=== PATIENT | male | born 1970 | race Two or more races ===

== ENCOUNTER 2017-12-02 12:35 | Emergency (ER) | payer MEDICARE, MEDICAID ==
[~2017-12-02] VITALS: Ht 172.7 cm; Wt 81.6 kg
[2017-12-02 12:31] VITALS: BP 105/69
[2017-12-02] MEDS ORDERED: TAMSULOSIN HCL0.4 MG ORAL (12:50)
[2017-12-02] MEDS ORDERED: DEPAKOTE ER500 MG ORAL ×2 (12:50)
[2017-12-02] MEDS ORDERED: LIPITOR80 MG ORAL (12:50)
[2017-12-02] MEDS ORDERED: CELEXA20 MG ORAL (12:50)
[2017-12-02] MEDS ORDERED: SYNTHROID25 MCG ORAL (12:50)
[2017-12-02] MEDS ORDERED: MAG-OXIDE400 M1 PO (12:50)
[2017-12-02] MEDS ORDERED: thorazine PO (12:50)
[2017-12-02] MEDS ORDERED: TRADJENTA5 MG PO (12:50)
[2017-12-02] MEDS ORDERED: FERROUS SULFAT325 MG ORAL (12:50)
[2017-12-02] MEDS ORDERED: COGENTIN1 MG ORAL (12:50)
[2017-12-02] MEDS ORDERED: LEVEMIR FL100 UNIT/1 SUBQ (12:50)
[2017-12-02] MEDS ORDERED: CIPRO500 MG PO (12:50)
[2017-12-02] MEDS ORDERED: FAMOTIDINE20 MG ORAL (12:50)
[2017-12-02] MEDS ORDERED: BENADRYL ALLERG25 M1 PO (12:50)
[2017-12-02] MEDS ORDERED: GLUCAGON W/DILUE1 MG IJ (12:50)
[2017-12-02] MEDS ORDERED: SENNA8.6 M2 PO (12:50)
[2017-12-02] MEDS ORDERED: BENAZEPRIL HCL20 MG ORAL (12:50)
[2017-12-02] MEDS ORDERED: ACETAMINOPHEN325 M1 ORAL (12:50)
[2017-12-02] MEDS ORDERED: DOCUSATE SODIU100 MG ORAL (12:50)
[2017-12-02] MEDS ORDERED: METFORMIN HCL1000 M1 ORAL (12:50)
--- NOTE | 2017-12-02 13:37 | Emergency Room Report ---
History of Present Illness General Chief Complaint: General Complaint Source: Patient, Medical Record Present Illness HPI 46-year-old male sent from facility for displaced suprapubic catheter Looks like he had 16 Estonian placed previously EMS, notes from facility and patient do not know when suprapubic fell out denies abdominal pain, vomiting, diarrhea, fever chills Allergies: Coded Allergies: SULFA (SULFONAMIDE ANTIBIOTICS) (Verified Allergy, Unknown, 12/02/17) Patient History Past Medical History: see triage record, old chart reviewed Past Surgical History: none Pertinent Family History: none Social History: Denies: smoking, alcohol use, drug use Immunizations: UTD Reviewed Nursing Documentation: PMH: Agreed; PSxH: Agreed Nursing Documentation-PMH Hx Hypertension: Yes Hx Diabetes: Yes - 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 Hx Gastrointestinal Problems: Yes - GERD, BPH w/o lower urinary tract symptoms History Of Psychiatric Problem: Yes - schizoaffective disorder, dperession, anxiety Hx Neurological Problems: Yes - muscle weakness, unspecified lack of coordiation Hx Seizures: Yes - epilepsy Review of Systems All Other Systems: negative except mentioned in HPI Physical Exam Vital Signs Date Time Temp Pulse Resp B/P (MAP) Pulse Ox O2 Delivery O2 Flow Rate FiO2 12/02/17 12:22 97.9 86 18 105/69 100 Room Air 97.9 Sp02 EP Interpretation: reviewed, normal General Appearance: normal inspection, well appearing, no apparent distress, alert, GCS 15, non-toxic, obese Head: normocephalic, atraumatic Eyes: bilateral eye PERRL, bilateral eye EOMI ENT: normal ENT inspection, hearing grossly normal, normal pharynx, no angioedema, normal voice, TMs + canals normal, uvula midline, moist mucus membranes Neck: normal inspection, full range of motion, supple, thyroid normal, no meningismus, no bony tend Respiratory: normal inspection, lungs clear, normal breath sounds, no rhonchi, no respiratory distress, no retraction, no accessory muscle use, no wheezing, speaking full sentences Cardiovascular #1: regular rate, rhythm, no edema, no JVD, normal capillary refill Gastrointestinal: normal inspection, normal bowel sounds, non tender, soft, no mass, no peritonitis, non-distended, no guarding, no hernia, no pulsatile mass Genitourinary: no CVA tenderness, other - Visualized suprapubic tract, no sign of infection. No reilly or other tube placed at facility to keep tract open. Musculoskeletal: normal inspection, back normal, normal range of motion, no calf tenderness, pelvis stable, Ivon's Sign negative Neurologic: normal inspection, alert, oriented x3, responsive, glazier stained glass III-XII nml as tested, motor strength/tone normal, cerebellar normal, normal gait, speech normal Psychiatric: normal inspection, judgement/insight normal, mood/affect normal, no suicidal/homicidal ideation, no delusions Skin: normal inspection, normal color, no rash Lymphatic: normal inspection, no adenopathy Procedures Additional Procedure Procedure Narrative Suprapubic cath replacement Area cleaned Sterile gloves worn 16F suprapubic attempted to be placed, met with resistance Unable to replace in ED Medical Decision Making Diagnostic Impression: Primary Impression: Suprapubic catheter ER Course VSS, afebrile Well appearing ERMD unable to replace suprapubic cath Signed out to Dr Alba to followup Urology C x with Dr Jalloh that I placed earlier Last Vital Signs Date Time Temp Pulse Resp B/P (MAP) Pulse Ox O2 Delivery O2 Flow Rate FiO2 12/02/17 12:31 97.9 80 18 105/69 100 Room Air 97.9 Status: improved Disposition: [facility] Condition: Improved DEV GONZALEZ M.D. Dec 02, 2017 13:37
[2017-12-02 14:00] VITALS: BP 123/85
[2017-12-02 16:00] VITALS: BP 123/85
--- NOTE | 2017-12-02 17:38 | Emergency Room Report ---
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 Hx Gastrointestinal Problems: Yes - GERD, BPH w/o lower urinary tract symptoms History Of Psychiatric Problem: Yes - schizoaffective disorder, dperession, anxiety Hx Neurological Problems: Yes - muscle weakness, unspecified lack of coordiation Hx Seizures: Yes - epilepsy Physical Exam Vital Signs Date Time Temp Pulse Resp B/P (MAP) Pulse Ox O2 Delivery O2 Flow Rate FiO2 12/02/17 12:22 97.9 86 18 105/69 100 Room Air 97.9 Medical Decision Making Diagnostic Impression: Primary Impression: Roberson catheter in place ER Course Please refer to the initial note for the history exam and presentation Patient's suprapubic catheter was not able to be replaced in the ER Urology has presented At bedside also not able to replace suprapubic catheter however Roberson catheter urethral was placed At this time patient will be dispositioned back to nursing facility Case notified with patient's primary physician at the facility and will require further definitive outpatient care however at this time with the indwelling catheter in place patient is stable for transfer back to [facility] Last Vital Signs Date Time Temp Pulse Resp B/P (MAP) Pulse Ox O2 Delivery O2 Flow Rate FiO2 12/02/17 16:00 98.0 68 24 123/85 100 Room Air 98.0 Status: improved Disposition: [facility] Condition: Improved Referrals: LUIS LOBATO (PCP) Additional Instructions: Patient is provided with the discharge instructions notified to follow up with primary doctor in the next 2-3 days otherwise return to the er with any worsening symptoms. Please note that this report is being documented using DRAGON technology. This can lead to erroneous entry secondary to incorrect interpretation by the dictating instrument. Kelly Alba DO Dec 02, 2017 17:38
[2017-12-02 18:00] VITALS: BP 123/85
[2017-12-02 19:12] VITALS: BP 128/32
--- NOTE | 2017-12-02 21:30 | Consultation ---
DATE OF CONSULTATION: 12/02/2017 UROLOGY CONSULTATION CONSULTING PHYSICIAN: Ami Ayers M.D. ATTENDING/CONSULTING PHYSICIAN: Kelly Alba D.O., emergency department. CHIEF COMPLAINT/HISTORY OF PRESENT ILLNESS: I was asked by Dr. Alba to evaluate this 46-year-old, unfortunate gentleman regarding history of urinary retention in the setting of a dislodged and removed suprapubic catheter. Briefly, the patient has a history of urinary retention and some possible history of BPH. He apparently has had a suprapubic catheter to manage his bladder for many years. It is changed regularly, once a month. It was noted today that the patient's catheter was out. It was uncertain as to how long it had been out. The patient has some sort of schizoaffective disorder/developmental delay and cannot provide much information. Most of the information is gathered from the chart. Given the above, I was asked to evaluate the patient. PAST MEDICAL HISTORY: 1. GERD. 2. Possible BPH. 3. Urinary retention. 4. Schizoaffective disorder/developmental delay. PAST SURGICAL HISTORY: Unknown outside of suprapubic catheter placement. MEDICATIONS: Please see the chart for current medications administration details. ALLERGIES: Sulfa drugs. SOCIAL HISTORY: Unremarkable for tobacco, alcohol, or drug use. FAMILY HISTORY: Noncontributory. REVIEW OF SYSTEMS: A 12-system review of systems was essentially unremarkable outside what was described above, although it was somewhat limited by the patient's mental status. PHYSICAL EXAMINATION: GENERAL: The patient is a middle-aged gentleman, awake and alert somewhat oriented today in no obvious distress. HEENT: NC/AT. EOMI. NECK: Supple. Oropharynx clear. CHEST: Within normal limits. ABDOMEN: Soft, nontender, and nondistended. SP tube site clean, dry and intact. EXTREMITIES: Warm and well perfused. No cyanosis, clubbing or edema. BACK: No CVA tenderness to percussion. NEUROLOGIC: Notable for some developmental delay. Otherwise, grossly nonfocal. GENITOURINARY: Reveals a uncircumcised male phallus. No discharge lesions or curvature. There are bilateral descended testes and cord structures with no masses or tenderness to palpation. LABORATORY AND DIAGNOSTIC DATA: Laboratory data, none. Diagnostic imaging, none. ASSESSMENT AND PLAN: In summary, the patient is a 46-year-old gentleman with a history of urinary retention/possible BPH, managed by suprapubic catheter, changed monthly. It was noted today that the suprapubic catheter was out, although the duration of how long it had been out was uncertain. The patient was sent here to have it replaced if possible. Physical exam reveals an SP tube site, which is clean, dry, and intact and a developmentally delayed somewhat heavy gentleman. Laboratory data and diagnostic imaging have not been ordered. Today at the bedside, I tried multiple times to replace the patient's suprapubic catheter using a 16-[place] Irish catheter. It would not penetrate down into the bladder. I used straight sounds to dilate the opening and although they passed somewhat deeper through the previous opening. There was no clear entry into the bladder and even after dilation, I could not pass the suprapubic catheter down into the bladder. As such, it was decided that the best thing to do would be to leave a urethral catheter for the time being, as the hole appeared to be closed. A 16-Northern Irish Roberson was placed into the bladder through the urethra and inflated and left to gravity drainage. It can be kept in place as necessary. The patient can be transferred back to his correction. He will eventually have a suprapubic tube replaced. Thank you for allowing me to participate in the care of this unfortunate gentleman. Please do not hesitate to contact me for any questions that you may further have regarding his care. I will be happy to see him with you as needed. Ayden Ayers M.D. DR: KAMRAN JOB#: [id number] CC:
== END 2017-12-02 19:31 ==
LOC: EDBD 12:35 → EMR 15:24
DX: T83.9XXA Unspecified complication of genitourinary prosthetic device, implant and graft, initial encounter (principal); Z88.2 Allergy status to sulfonamides; I10 Essential (primary) hypertension; E11.9 Type 2 diabetes mellitus without complications; Z79.4 Long term (current) use of insulin; K21.9 Gastro-esophageal reflux disease without esophagitis; F41.9 Anxiety disorder, unspecified; F32.9 Major depressive disorder, single episode, unspecified; G40.909 Epilepsy, unspecified, not intractable, without status epilepticus; F25.9 Schizoaffective disorder, unspecified; X58.XXXA Exposure to other specified factors, initial encounter; R33.9 Retention of urine, unspecified
CPT/HCPCS: 99284

== ENCOUNTER 2020-03-17 13:20 | Outpatient (CLI) | payer MEDICARE, MEDICAID ==
[~2020-03-17 13:20] MED LIST: ACETAMINOPHEN325 M1 ORAL; BENADRYL ALLERG25 M1 PO; BENAZEPRIL HCL20 MG ORAL; CELEXA20 MG ORAL; CIPRO500 MG PO; COGENTIN1 MG ORAL; DEPAKOTE ER500 MG ORAL; DOCUSATE SODIU100 MG ORAL; FAMOTIDINE20 MG ORAL; FERROUS SULFAT325 MG ORAL; GLUCAGON W/DILUE1 MG IJ; LEVEMIR FL100 UNIT/1 SUBQ; LIPITOR80 MG ORAL; MAG-OXIDE400 M1 PO; METFORMIN HCL1000 M1 ORAL; SENNA8.6 M2 PO; SYNTHROID25 MCG ORAL; TAMSULOSIN HCL0.4 MG ORAL; TRADJENTA5 MG PO; thorazine PO
[2020-03-18] MEDS ORDERED: METOPROLOL TART25 MG ORAL (10:45)
[2020-03-18] MEDS ORDERED: URECHOLINE50 MG ORAL (10:45)
[2020-03-18] MEDS ORDERED: SEROQUEL200 MG ORAL (10:45)
[2020-03-18] MEDS ORDERED: MIRALAX17 G2 ORAL (10:45)
[2020-03-18] MEDS ORDERED: CRANBERRY450 M4 PO (10:45)
[2020-03-18] MEDS ORDERED: SEROQUEL300 MG ORAL (10:45)
[2020-03-18] MEDS ORDERED: PROBIOTIC1 EAC5 PO (10:45)
[2020-03-18] MEDS ORDERED: CHLORPROMAZINE200 MG PO (10:45)
[2020-03-18] MEDS ORDERED: VITAMIN D325 MCG PO (10:45)
[2020-03-18] MEDS ORDERED: BENEFIBER152 GM PO (10:45)
[2020-03-18] MEDS ORDERED: VALIUM10 MG ORAL (10:45)
== END 2020-03-17 15:20 | disposition home or self-care (01) ==
LOC: PAN 13:20
DX: R10.9 Unspecified abdominal pain (principal)
CPT/HCPCS: G0463